=== PATIENT | male | born 1960 | race Caucasian/White ===

== ENCOUNTER 2017-05-02 17:05 | Emergency (ER) | payer MEDICARE, MEDICAID ==
--- NOTE | 2017-05-02 17:23 | EDM.PDOC ---
ED HPI GENERAL MEDICAL PROBLEM - General Chief Complaint: Lower Extremity Injury/Pain Stated Complaint: PT SPILL HOT COFFEE ON HIS LT LEG Time Seen by Provider: 05/02/17 17:19 - History of Present Illness INITIAL COMMENTS - FREE TEXT/NARRATIVE: HISTORY AND PHYSICAL: History of present illness: Patient 56-year-old white male presents with concern of burn to his left leg that occur when he spilled hot coffee on it several days prior he has had increased erythema and discomfort since he denies other concern is been no fever chills nausea vomiting Review of systems: As per history of present illness and below otherwise all systems reviewed and negative. Past medical history: As per history of present illness and as reviewed below otherwise noncontributory. Surgical history: As per history of present illness and as reviewed below otherwise noncontributory. Social history: No reported history of drug or alcohol abuse. Family history: As per history of present illness and as reviewed below otherwise noncontributory. Physical exam: HEENT: Atraumatic, normocephalic, pupils reactive, negative for conjunctival pallor or scleral icterus, mucous membranes moist, throat clear, neck supple, nontender, trachea midline. Lungs: Clear to auscultation, breath sounds equal bilaterally, chest nontender. Heart: S1S2, regular, negative for clicks, rubs, or JVD. Abdomen: Soft, nondistended, nontender. Negative for masses or hepatosplenomegaly. Negative for costovertebral tenderness. Pelvis: Stable nontender. Genitourinary: Deferred. Rectal: Deferred. Extremities: Patient has 3 areas approximately 2% total body surface burn to the medial aspect of his left proximal leg with surrounding erythema and warmth neurovascular exam CMS are unremarkable Neuro: Awake, alert, oriented. Cranial nerves II through XII unremarkable. Cerebellum unremarkable. Motor and sensory unremarkable throughout. Exam nonfocal. Diagnostics: None Therapeutics: None Impression: #1 burn left lower extremity less than 2% total body surface area without circumstantiality #2 cellulitis Definitive disposition and diagnosis as appropriate pending reevaluation and review of above. Review of Systems - Review of Systems Review Of Systems: ROS reveals no pertinent complaints other than HPI. ED EXAM, GENERAL - Physical Exam Exam: See Below (The dictation) Departure - Departure Time of Disposition: 17:22 Disposition: Home, Self-Care 01 Condition: Good Clinical Impression: Burn, Cellulitis - Discharge Information Referrals: PCP,None [Primary Care Provider] - Additional Instructions: The following information is given to patients seen in the emergency department who are being discharged to home. This information is to outline your options for follow-up care. We provide all patients seen in our emergency department with a follow-up referral. The need for follow-up, as well as the timing and circumstances, are variable depending upon the specifics of your emergency department visit. If you don't have a primary care physician on staff, we will provide you with a referral. We always advise you to contact your personal physician following an emergency department visit to inform them of the circumstance of the visit and for follow-up with them and/or the need for any referrals to a consulting specialist. The emergency department will also refer you to a specialist when appropriate. This referral assures that you have the opportunity for followup care with a specialist. All of these measure are taken in an effort to provide you with optimal care, which includes your followup. Under all circumstances we always encourage you to contact your private physician who remains a resource for coordinating your care. When calling for followup care, please make the office aware that this follow-up is from your recent emergency room visit. If for any reason you are refused follow-up, please contact the [facility] emergency department at and asked to speak to the emergency department charge nurse. Dr. mar as prescribed Motrin/Tylenol as directed follow-up for wound evaluation primary medical doctor and/or clinic call to schedule routine appointment return as needed as discussed
== END 2017-05-02 17:29 | disposition home or self-care (01) ==
LOC: MW.ED 17:05
DX: L03.116 Cellulitis of left lower limb (principal)
CPT/HCPCS: 99282; 99283

== ENCOUNTER 2019-08-30 13:50 | Emergency (ER) | payer MEDICARE, MEDICAID ==
[2019-08-30] MEDS ORDERED: Sodium Chloride 0.9% 10 ML Syringe FLUSH PRN (15:37)
[2019-08-30] MEDS ORDERED: Sodium Chloride 0.9% 2.5 ML Syringe FLUSH PRN (15:37)
--- NOTE | 2019-08-30 16:14 | EDM.PDOC ---
ED HPI GENERAL MEDICAL PROBLEM - General Chief Complaint: General Stated Complaint: ULCER Time Seen by Provider: 08/30/19 15:37 Source of Information: Reports: Patient - History of Present Illness INITIAL COMMENTS - FREE TEXT/NARRATIVE: History of present illness: 58-year-old male presenting with report of "ulcers", however when asked to clarify, he reports bleeding from the rectum as well as painful possible hemorrhoids around his rectum and some dark-colored stools. He does also report some upper abdominal/epigastric area pain and he has been taking Pepto-Bismol lately. The symptoms have been ongoing for a few weeks. No chest pain or difficulty breathing. Denies any past medical history. Review of systems: As per history of present illness and below otherwise all systems reviewed and negative. Past medical history: As per history of present illness and as reviewed below otherwise noncontributory. Surgical history: As per history of present illness and as reviewed below otherwise noncontributory. Social history: No reported history of drug or alcohol abuse. Tobacco Family history: As per history of present illness and as reviewed below otherwise noncontributory. Physical exam: GEN: no acute distress, well appearing HEENT: Atraumatic, normocephalic, mucous membranes moist, Neck: supple, nontender, trachea midline. Lungs: No respiratory distress. Heart: RRR Abdomen: Soft, nondistended, very mild epigastric tenderness. Rectal: Hemorrhoids, inflamed, tender during rectal examination, dark-colored stool that was guaiac negative, no anal fissure Back: nontender Extremities: Atraumatic. Neurovascularly intact. Neuro: Awake, alert, oriented. Neuro Exam nonfocal. Skin: warm, dry, no lesions Diagnostics: [] Therapeutics: [] MDM: Impression: [] Plan: [] Definitive disposition and diagnosis as appropriate pending reevaluation and review of above. - Related Data Allergies Allergy/AdvReac Type Severity Reaction Status Date / Time No Known Allergies Allergy Verified 08/30/19 14:07 Home Meds: Home Meds Docusate Sodium [Colace] 100 mg PO DAILY #30 capsule 08/30/19 [Rx] Omeprazole 20 mg PO DAILY #30 capsule. 08/30/19 [Rx] weston Monet [Gerard] 1 pad TOP ASDIRECTED #30 pad 08/30/19 [Rx] Past Medical History - Past Health History Medical/Surgical History: Denies Medical/Surgical History HEENT History: Reports: None Cardiovascular History: Reports: None Respiratory History: Reports: None Gastrointestinal History: Reports: None Genitourinary History: Reports: None Musculoskeletal History: Reports: None Neurological History: Reports: None Psychiatric History: Reports: None Endocrine/Metabolic History: Reports: None Hematologic History: Reports: None Immunologic History: Reports: None Oncologic (Cancer) History: Reports: None Dermatologic History: Reports: Cellulitis - Infectious Disease History Infectious Disease History: Reports: None - Past Surgical History Head Surgeries/Procedures: Reports: None Social & Family History - Family History Family Medical History: Noncontributory - Tobacco Use Smoking Status *Q: Current Every Day Smoker Years of Tobacco use: 40 Packs/Tins Daily: 1 - Caffeine Use Caffeine Use: Reports: None - Recreational Drug Use Recreational Drug Use: No ED ROS GENERAL - Review of Systems Review Of Systems: See Below (See HPI) ED EXAM, GENERAL - Physical Exam Exam: See Below (See HPI see HPI) EKG INTERPRETATION EKG Interpretation Comments: EKG performed at 4:29 PM, sinus rhythm, rate 76, no acute ischemia. No STEMI. Interpreted by me. Course - Vital Signs Text/Narrative:: Epigastric pain, anal area pain/hemorrhoids, dark stool - guaiac negative. H/H stable. INR not prolonged. No known PMHX Referred for Surgery f/u for endoscopy/colonoscopy. Start omeprazole. Tucks/colace and Sitz bath for hemorrhoid pain relief. Last Recorded V/S: Last Vital Signs Temp Pulse 82 08/30/19 17:13 Resp 18 08/30/19 17:13 BP 150/105 H 08/30/19 17:13 Pulse Ox 94 L 08/30/19 17:13 - Orders/Labs/Meds Orders: Active Orders 24 hr Category Date Time Status EKG 12 Lead [EKG Documentation Completion] [RC] STAT Care 08/30/19 16:23 Active Saline Lock Insert [OM.PC] Stat Oth 08/30/19 15:37 Ordered Labs: Laboratory Tests 08/30/19 08/30/19 08/30/19 Range/Units 15:58 15:58 15:58 WBC 9.68 (4.0-11.0) K/uL RBC 5.05 (4.50-5.90) M/uL Hgb 15.8 (13.0-17.0) g/dL Hct 47.4 (38.0-50.0) % MCV 93.9 (80.0-98.0) fL MCH 31.3 (27.0-32.0) pg MCHC 33.3 (31.0-37.0) g/dL RDW Std Deviation 48.2 (28.0-62.0) fl RDW Coeff of Jade 14 (11.0-15.0) % Plt Count 190 (150-400) K/uL MPV 9.90 (7.40-12.00) fL Neut % (Auto) 64.7 (48.0-80.0) % Lymph % (Auto) 27.1 (16.0-40.0) % [place] % (Auto) 6.3 (0.0-15.0) % Eos % (Auto) 1.5 (0.0-7.0) % Baso % (Auto) 0.4 (0.0-1.5) % Neut # (Auto) 6.3 H (1.4-5.7) K/uL Lymph # (Auto) 2.6 H (0.6-2.4) K/uL [place] # (Auto) 0.6 (0.0-0.8) K/uL Eos # (Auto) 0.2 (0.0-0.7) K/uL Baso # (Auto) 0.0 (0.0-0.1) K/uL Nucleated RBC % 0.0 /100WBC Nucleated RBCs # 0 K/uL INR 0.92 APTT 27.0 (18.6-31.3) SEC Sodium 140 (136-148) mmol/L Potassium 4.1 (3.5-5.1) mmol/L Chloride 103 (98-107) mmol/L Carbon Dioxide 29.6 (21.0-32.0) mmol/L BUN 19 H (7.0-18.0) mg/dL Creatinine 0.8 (0.8-1.3) mg/dL Est Cr Clr Drug Dosing 103.10 mL/min Estimated GFR (MDRD) > 60.0 ml/min Glucose 108 H (74-106) mg/dL Calcium 9.1 (8.5-10.1) mg/dL Total Bilirubin 0.3 (0.2-1.0) mg/dL AST 28 (15-37) IU/L ALT 33 (14-63) IU/L Alkaline Phosphatase 114 (46-116) U/L Total Protein 8.0 (6.4-8.2) g/dL Albumin 3.6 (3.4-5.0) g/dL Globulin 4.4 H (2.6-4.0) g/dL Albumin/Globulin Ratio 0.8 L (0.9-1.6) Blood Type Antibody Screen 08/30/19 Range/Units 16:12 WBC (4.0-11.0) K/uL RBC (4.50-5.90) M/uL Hgb (13.0-17.0) g/dL Hct (38.0-50.0) % MCV (80.0-98.0) fL MCH (27.0-32.0) pg MCHC (31.0-37.0) g/dL RDW Std Deviation (28.0-62.0) fl RDW Coeff of Jade (11.0-15.0) % Plt Count (150-400) K/uL MPV (7.40-12.00) fL Neut % (Auto) (48.0-80.0) % Lymph % (Auto) (16.0-40.0) % [place] % (Auto) (0.0-15.0) % Eos % (Auto) (0.0-7.0) % Baso % (Auto) (0.0-1.5) % Neut # (Auto) (1.4-5.7) K/uL Lymph # (Auto) (0.6-2.4) K/uL [place] # (Auto) (0.0-0.8) K/uL Eos # (Auto) (0.0-0.7) K/uL Baso # (Auto) (0.0-0.1) K/uL Nucleated RBC % /100WBC Nucleated RBCs # K/uL INR APTT (18.6-31.3) SEC Sodium (136-148) mmol/L Potassium (3.5-5.1) mmol/L Chloride (98-107) mmol/L Carbon Dioxide (21.0-32.0) mmol/L BUN (7.0-18.0) mg/dL Creatinine (0.8-1.3) mg/dL Est Cr Clr Drug Dosing mL/min Estimated GFR (MDRD) ml/min Glucose (74-106) mg/dL Calcium (8.5-10.1) mg/dL Total Bilirubin (0.2-1.0) mg/dL AST (15-37) IU/L ALT (14-63) IU/L Alkaline Phosphatase (46-116) U/L Total Protein (6.4-8.2) g/dL Albumin (3.4-5.0) g/dL Globulin (2.6-4.0) g/dL Albumin/Globulin Ratio (0.9-1.6) Blood Type O POSITIVE Antibody Screen NEGATIVE Meds: Medications Discontinued Medications Generic Name Dose Route Start Last Admin Trade Name Freq PRN Reason Stop Dose Admin Sodium Chloride 10 ml 08/30/19 15:37 Saline Flush FLUSH ASDIRECTED PRN Keep Vein Open Sodium Chloride 2.5 ml 08/30/19 15:37 Saline Flush FLUSH ASDIRECTED PRN Keep Vein Open - Re-Assessments/Exams Free Text/Narrative Re-Assessment/Exam: 08/30/19 16:43 Discussed all results and plan of care with patient. Answered all questions. Discussed need to take the omeprazole daily - he thinks the pharmacist may have given him this medication that he just started taking in the last 2 days. Discussed hemorrhoid care. NO signs of perirectal abscess/infection at this time and stable for outpatient treatment. Departure - Departure Time of Disposition: 16:59 Disposition: Home, Self-Care 01 Clinical Impression: Epigastric pain, Hemorrhoid - Discharge Information Prescriptions: Docusate Sodium [Colace] 100 mg PO DAILY #30 capsule Omeprazole 20 mg PO DAILY #30 capsule.dr weston Monet [[facility]] 1 pad TOP ASDIRECTED #30 pad Instructions: Hemorrhoids, [id number], Surgical Procedures for Hemorrhoids, Abdominal Pain, Adult, [id number], Nonsurgical Procedures for Hemorrhoids, Care After Referrals: Mukul Nazario DO [Primary Care Provider] - Idania Griffith MD [Physician] - 2 Days Forms: ED Department Discharge Additional Instructions: Please take omeprazole daily for the next 2 weeks. Please follow-up with the surgeon listed above for further evaluation of your hemorrhoids and epigastric pain, you may need upper and lower GI endoscopy. You may use Tucks medicated pads and please do sitz bath's for your hemorrhoids. You may also switch to water wipes instead of dry toilet paper to help soothe the area. Please follow-up with 1 of the primary care clinics listed below for ongoing daily primary care. The following information is given to patients seen in the emergency department who are being discharged to home. This information is to outline your options for follow-up care. We provide all patients seen in our emergency department with a follow-up referral. The need for follow-up, as well as the timing and circumstances, are variable depending upon the specifics of your emergency department visit. If you don't have a primary care physician on staff, we will provide you with a referral. We always advise you to contact your personal physician following an emergency department visit to inform them of the circumstance of the visit and for follow-up with them and/or the need for any referrals to a consulting specialist. The emergency department will also refer you to a specialist when appropriate. This referral assures that you have the opportunity for follow-up care with a specialist. All of these measure are taken in an effort to provide you with optimal care, which includes your follow-up. Under all circumstances we always encourage you to contact your private physician who remains a resource for coordinating your care. When calling for follow-up care, please make the office aware that this follow-up is from your recent emergency room visit. If for any reason you are refused follow-up, please contact the [facility] Emergency Department at and asked to speak to the emergency department charge nurse. [facility] - Primary Care [address] [place] [id number] [facility] [address] [place] [address] Sepsis Event Note (ED) - Evaluation Sepsis Screening Result: No Definite Risk - Focused Exam Vital Signs: Vital Signs Pulse Resp BP Pulse Ox 08/30/19 17:13 82 18 150/105 H 94 L 08/30/19 14:08 84 20 139/71 94 L - My Orders Last 24 Hours: My Active Orders 08/30/19 15:37 Saline Lock Insert [OM.PC] Stat 08/30/19 16:23 EKG 12 Lead [EKG Documentation Completion] [RC] STAT - Assessment/Plan Last 24 Hours: My Active Orders 08/30/19 15:37 Saline Lock Insert [OM.PC] Stat 08/30/19 16:23 EKG 12 Lead [EKG Documentation Completion] [RC] STAT
[2019-08-30 16:29] LABS: BLOOD UREA NITROGEN,BUN 19 mg/dL (7.0-18.0); CARBON DIOXIDE,CO2 29.6 mmol/L (21.0-32.0); CHLORIDE,CL 103 mmol/L (98-107); GLUCOSE RANDOM 108 mg/dL (74-106); POTASSIUM,K 4.1 mmol/L (3.5-5.1); SODIUM,NA 140 mmol/L (136-148)
== END 2019-08-30 17:23 | disposition home or self-care (01) ==
LOC: MW.ED 13:50
DX: K64.9 Unspecified hemorrhoids (principal); R10.13 Epigastric pain; F17.210 Nicotine dependence, cigarettes, uncomplicated; Z79.899 Other long term (current) drug therapy
CPT/HCPCS: 36415; 80053; 85025; 85610; 85730; 86850; 86900; 86901; 93005; 99284-25

== ENCOUNTER 2019-09-06 20:06 | Emergency (ER) | payer MEDICARE, MEDICAID ==
[2019-09-07] MEDS ORDERED: Sodium Chloride 0.9% 2.5 ML Syringe FLUSH PRN (00:07)
[2019-09-07] MEDS ORDERED: Acetaminophen 325 MG/10.15 ML ML PO ONE (00:07)
[2019-09-07] MEDS ORDERED: Piperacillin/Tazobactam 4.5 GM in Sodium Chloride 0.9% 100 ML IV ONE (00:07)
[2019-09-07] MEDS ORDERED: Acetaminophen 500 MG Tab PO ONE (00:32)
[2019-09-07] MEDS: Sodium Chloride 0.9% 10 ML Syringe FLUSH PRN ×2 (00:41→00:43)
[2019-09-07 00:57] LABS: BLOOD UREA NITROGEN,BUN 19 mg/dL (7.0-18.0); CARBON DIOXIDE,CO2 28.7 mmol/L (21.0-32.0); CHLORIDE,CL 101 mmol/L (98-107); GLUCOSE RANDOM 112 mg/dL (74-106); POTASSIUM,K 3.9 mmol/L (3.5-5.1); SODIUM,NA 139 mmol/L (136-148)
[2019-09-07] MEDS ORDERED: Diphtheria,Pertussis(Acell),Tetanus Vaccine 0.5 ML Syringe IM ONE (01:01)
--- NOTE | 2019-09-07 01:19 | CR ---
INDICATION: Pain after stepping on nail TECHNIQUE: Three views right foot COMPARISON: 02/24/2019 FINDINGS: Bones: Alignment is normal. No fractures or bone lesions. Joint spaces: Unremarkable. Soft tissues: Plantar and dorsal calcaneal spurs. Calcification of the Achilles tendon. IMPRESSION: No radiopaque foreign bodies. No fractures. Dictated by Herrera Rivero MD @ Sep 07 2019 1:18AM Signed by Dr. Herrera Rivero @ Sep 07 2019 1:18AM
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
[2019-09-07] MEDS ORDERED: Vancomycin 1.75 GM in Sodium Chloride 0.9% 500 ML IV SCH (02:00)
== END 2019-09-07 03:04 | disposition left against medical advice (07) ==
LOC: MW.ED 20:06
DX: L03.115 Cellulitis of right lower limb (principal); K21.9 Gastro-esophageal reflux disease without esophagitis; F17.210 Nicotine dependence, cigarettes, uncomplicated; Z20.828 Contact with and (suspected) exposure to other viral communicable diseases; Z79.899 Other long term (current) drug therapy; Z23 Encounter for immunization; W45.0XXA Nail entering through skin, initial encounter
CPT/HCPCS: 36415; 73630; 80053; 83605; 84145; 85025; 85652; 87040; 90471; 90715; 96365; 96366; 99283; A9270; J2543; J7050; U0002

== ENCOUNTER 2020-01-31 05:24 | Emergency (ER) | payer MEDICARE, MEDICAID ==
[2020-01-31] MEDS ORDERED: Sodium Chloride 0.9% 10 ML Syringe FLUSH PRN (05:43)
[2020-01-31] MEDS ORDERED: Sodium Chloride 0.9% 2.5 ML Syringe FLUSH PRN (05:43)
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
[2020-01-31] MEDS ORDERED: Lidocaine 1% with EPINEPHrine 1:100,000 10 ML MDV INJECT ONE (06:14)
[2020-01-31] MEDS ORDERED: Lidocaine 1% with EPINEPHrine 1:100,000 20 ML MDV INJECT ONE (06:17)
[2020-01-31] MEDS ORDERED: Piperacillin/Tazobactam 4.5 GM in Sodium Chloride 0.9% 100 ML IV ONE (06:34)
[2020-01-31 06:38] LABS: BLOOD UREA NITROGEN,BUN 19 mg/dL (7.0-18.0); CARBON DIOXIDE,CO2 29.2 mmol/L (21.0-32.0); CHLORIDE,CL 102 mmol/L (98-107); GLUCOSE RANDOM 112 mg/dL (74-106); POTASSIUM,K 4.2 mmol/L (3.5-5.1); SODIUM,NA 138 mmol/L (136-148)
--- NOTE | 2020-01-31 06:46 | CR ---
Indication: Osteomyelitis. Technique: Right foot 3 views Comparison: September 07, 2019 Findings: Bones: Alignment is normal. No fractures or bone lesions. No sign of osteomyelitis. There is spurring at the insertion of the Achilles tendon. Joint spaces: Unremarkable. Soft tissues: Mild nonspecific soft tissue swelling in the distal aspect of the midfoot best visualized on the lateral image. Dictated by Avtar Lewis MD @ Jan 31 2020 6:43AM Signed by Dr. Avtar Lewis @ Jan 31 2020 6:45AM
== END 2020-01-31 07:41 | disposition home or self-care (01) ==
LOC: MW.ED 05:24
DX: L03.115 Cellulitis of right lower limb (principal); L02.611 Cutaneous abscess of right foot
CPT/HCPCS: 10060; 36415; 73630; 80053; 83605; 85025; 85652; 86140; 87040; 87070; 96365; 99283; J2543; J7050

== ENCOUNTER 2020-08-20 10:02 | Emergency (ER) | payer MEDICARE, MEDICAID ==
[2020-08-20] MEDS ORDERED: Albuterol/Ipratropium 3.0-0.5 MG/3 ML Neb Soln NEB ONE ×2 (10:06→10:22)
[2020-08-20] MEDS ORDERED: Sodium Chloride 0.9% 10 ML Syringe FLUSH PRN (10:06)
[2020-08-20] MEDS ORDERED: Sodium Chloride 0.9% 2.5 ML Syringe FLUSH PRN (10:06)
[2020-08-20] MEDS ORDERED: Furosemide 40 MG/4 ML VIAL IVPUSH ONE (10:08)
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
[2020-08-20] MEDS ORDERED: Albuterol/Ipratropium 3.0-0.5 MG/3 ML Neb Soln ONE (10:21)
[2020-08-20] MEDS ORDERED: methylPREDNISolone Sodium Succinate 125 MG/2 ML SDV IVPUSH ONE (11:10)
[2020-08-20] MEDS ORDERED: Albuterol 0.5% 5 MG/ML Neb Soln 20 ML Bottle NEB ONE (11:11)
[2020-08-20 11:13] LABS: BLOOD UREA NITROGEN,BUN 8 mg/dL (7.0-18.0); CARBON DIOXIDE,CO2 32.5 mmol/L (21.0-32.0); CHLORIDE,CL 99 mmol/L (98-107); GLUCOSE RANDOM 118 mg/dL (74-106); POTASSIUM,K 4.1 mmol/L (3.5-5.1); SODIUM,NA 140 mmol/L (136-148)
--- NOTE | 2020-08-20 11:14 | CR ---
Indication: Dyspnea Comparison: Two view chest April 22, 2011 Technique: Single AP view chest Findings: There is hyperinflation and chronic interstitial change. There is questionable right basilar pleural effusion with adjacent compressive atelectasis versus infiltrates. The left hemithorax is clear. There is no pneumothorax. Cardiac silhouette is [id number] prominent, a pericardial effusion cannot be excluded. The bony thorax is grossly intact. Impression: Questionable right basilar pleural effusion with adjacent compressive atelectasis versus infiltrates. Somewhat prominent cardiac silhouette from comparison exam. A pericardial effusion cannot be entirely excluded. Dictated by Albaro Allen MD @ 08/20/2020 11:12:[address] Albaro Allen @ Aug 20 2020 11:12AM
[2020-08-20] MEDS ORDERED: Iopamidol 755 MG/ML 500 ML Multipack Bottle IVPUSH STA (12:34)
--- NOTE | 2020-08-20 13:51 | CT ---
INDICATION: Dyspnea with right atrial enlargement on chest x-ray TECHNIQUE: CT chest pulmonary angiogram acquired with IV contrast. 100 cc Isovue 370 COMPARISON: None FINDINGS: Cardiovascular structures: Normal vascular enhancement of the pulmonary arteries, no sign of pulmonary embolism. Heart size is normal. Small pericardial effusion. No sign of aneurysm or dissection in the thoracic aorta. Mediastinum and julian: Subcentimeter mediastinal adenopathy. Lungs: Clear. Pleura and pericardium: No effusions. Chest wall and axilla: No mass or adenopathy. Bones: No significant findings. Upper abdomen: Degenerative changes thoracic spine. IMPRESSION: No evidence for pulmonary embolus or pneumonia. Small pericardial effusion. Please note that all CT scans at this facility use dose modulation, iterative reconstruction, and/or weight-based dosing when appropriate to reduce radiation dose to as low as reasonably achievable. Dictated by Herrera Rivero MD @ 08/20/2020 1:50:[address] Herrera Rivero @ Aug 20 2020 1:50PM
== END 2020-08-20 14:13 | disposition home or self-care (01) ==
LOC: MW.ED 10:02
DX: J44.1 Chronic obstructive pulmonary disease with (acute) exacerbation (principal); J90 Pleural effusion, not elsewhere classified
CPT/HCPCS: 36415; 71045; 71275; 80053; 81003; 83880; 84484; 85025; 85610; 93005; 94640; 96374; 96375; 99285; J1940; J2930; Q9967; J7620-GY

== ENCOUNTER 2021-04-02 08:43 | Emergency (ER) | payer MEDICARE, MEDICAID ==
[2021-04-02] MEDS ORDERED: Ibuprofen 600 MG Tab PO ONE (09:11)
[2021-04-02] MEDS ORDERED: traMADol 50 MG Tab PO ONE (09:11)
[2021-04-02] MEDS ORDERED: Ibuprofen 600 MG Tab ONE (09:22)
== END 2021-04-02 10:18 | disposition home or self-care (01) ==
LOC: MW.ED 08:43
DX: S43.401A Unspecified sprain of right shoulder joint, initial encounter (principal); S53.401A Unspecified sprain of right elbow, initial encounter; J44.9 Chronic obstructive pulmonary disease, unspecified; K21.9 Gastro-esophageal reflux disease without esophagitis; E66.9 Obesity, unspecified; Z72.0 Tobacco use; Z68.28 Body mass index [BMI] 28.0-28.9, adult; Z79.82 Long term (current) use of aspirin; W00.0XXA Fall on same level due to ice and snow, initial encounter
CPT/HCPCS: 73030; 73080; 99283; A9270

== ENCOUNTER 2021-06-20 12:53 | Emergency (ER) | payer MEDICARE, MEDICAID ==
[2021-06-20] MEDS ORDERED: predniSONE 10 MG Tab PO ONE (13:12)
[2021-06-20] MEDS ORDERED: Ketorolac 60 MG/2 ML SDV IM ONE (13:13)
== END 2021-06-20 13:57 | disposition home or self-care (01) ==
LOC: MW.ED 12:53
DX: M10.9 Gout, unspecified (principal); J44.9 Chronic obstructive pulmonary disease, unspecified; K21.9 Gastro-esophageal reflux disease without esophagitis; E66.9 Obesity, unspecified; Z68.38 Body mass index [BMI] 38.0-38.9, adult; Z20.822 Contact with and (suspected) exposure to COVID-19; Z79.82 Long term (current) use of aspirin
CPT/HCPCS: 73660; 96372; 99283; A9270; J1885

== ENCOUNTER 2022-07-29 06:23 | Emergency (ER) | payer MEDICARE, MEDICAID | END 2022-07-29 08:58 | disposition home or self-care (01) | LOC: MW.ED 06:23 | DX: B35.1 Tinea unguium (principal); B35.3 Tinea pedis; J44.9 Chronic obstructive pulmonary disease, unspecified; M19.90 Unspecified osteoarthritis, unspecified site; E66.9 Obesity, unspecified; Z68.38 Body mass index [BMI] 38.0-38.9, adult; Z79.82 Long term (current) use of aspirin; Z79.899 Other long term (current) drug therapy | CPT/HCPCS: 736302650; 73630-50; 99283 ==

== ENCOUNTER 2022-10-25 10:12 | Emergency (ER) | payer MEDICARE, MEDICAID ==
[2022-10-25] MEDS ORDERED: Cyclobenzaprine 10 MG Tab PO ONE (10:32)
[2022-10-25] MEDS ORDERED: Lidocaine 4% 1 each Patch TOP STA (10:32)
== END 2022-10-25 10:54 | disposition home or self-care (01) ==
LOC: MW.ED 10:12
DX: M54.50 Low back pain, unspecified (principal); M25.551 Pain in right hip; M25.552 Pain in left hip; F17.210 Nicotine dependence, cigarettes, uncomplicated; Z79.82 Long term (current) use of aspirin; Z79.899 Other long term (current) drug therapy
CPT/HCPCS: 93005; 99284; A9270; 99283

== ENCOUNTER 2024-11-04 12:37 | Inpatient (IN) | payer MEDICARE, MEDICAID ==
[2024-11-04 13:31] LABS: APPEARANCE,URINE CLEAR; GLUCOSE,URINE NEGATIVE (NEGATIVE); OCCULT BLOOD,URINE NEGATIVE (NEGATIVE)
[2024-11-04] MEDS: methylPREDNISolone Sodium Succinate 125 MG/2 ML SDV IVPUSH ONE (13:34)
[2024-11-04 13:38] LABS: BASOPHILS ABSOLUTE AUTO 0.04 K/uL (0.00-0.20); BASOPHILS PERCENT AUTO 0.4 % (0.0-1.0); EOSINOPHILS ABSOLUTE AUTO 0.13 K/uL (0.00-0.45); EOSINOPHILS PERCENT AUTO 1.2 % (0.0-6.0); IMMATURE GRAN ABSOLUTE AUTO 0.06 K/uL (0.00-0.05); IMMATURE GRAN PERCENT AUTO 0.6 % (0.0-0.4); LYMPHOCYTES ABSOLUTE AUTO 1.69 K/uL (1.00-4.80); LYMPHOCYTES PERCENT AUTO 15.6 % (24.0-44.0); MEAN PLATELET VOLUME 9.8 fL (9.4-12.4); MONOCYTES ABSOLUTE AUTO 0.67 K/uL (0.00-0.80); MONOCYTES PERCENT AUTO 6.2 % (0.0-8.0); NEUTROPHILS ABSOLUTE AUTO 8.21 K/uL (1.80-7.70); NEUTROPHILS PERCENT AUTO 76.0 % (41.0-71.0); NRBC ABSOLUTE 0.00 K/uL (0.00-0.02); NRBC PERCENT 0.0 /100WBC (0.0-0.2); PLATELET COUNT,PLT 170 K/uL (150-400); RED BLOOD CELL COUNT 5.23 M/uL (4.52-5.90); WHITE BLOOD CELL COUNT,WBC 10.80 K/uL (3.9-11.3)
[2024-11-04 13:40] LABS: AMPHETAMINES SCREEN, URINE NEGATIVE (CUTOFF=500); BUPRENORPHINE SCREEN,URINE NEGATIVE (CUTOFF=10); METHADONE SCREEN, URINE NEGATIVE (CUTOFF=200); METHAMPHETAMINES SCREEN, URINE NEGATIVE (CUTOFF=500); OXYCODONE SCREEN,URINE NEGATIVE (CUT0FF=100); PCP SCREEN,URINE NEGATIVE (CUTOFF=25); THC SCREEN,URINE 20 NG/ML PRESUMPTIVE POSITIVE (CUTOFF=50)
[2024-11-04 14:05] LABS: A/G RATIO 0.8 (0.9-1.6); ALANINE AMINOTRANSFERASE,ALT 35 IU/L (14-63); ASPARTATE AMNIOTRANSFERASE,AST 35 IU/L (15-37); BILIRUBIN TOTAL 0.6 mg/dL (0.2-1.0); BLOOD UREA NITROGEN,BUN 20 mg/dL (7.0-18.0); CARBON DIOXIDE,CO2 34.3 mmol/L (21.0-32.0); CHLORIDE,CL 100 mmol/L (98-107); CREATININE 0.9 mg/dL (0.8-1.3); EST CRCL DRUG DOSING (CG) 82.33 mL/min; ETHANOL BLOOD MEDICAL <3 mg/dL; GLUCOSE RANDOM 94 mg/dL (74-106); POTASSIUM,K 4.6 mmol/L (3.5-5.1); PROTEIN TOTAL,TP 7.7 g/dL (6.4-8.2); SODIUM,NA 141 mmol/L (136-148)
[2024-11-04 14:07] LABS: ESTIMATED GFR 97 mL/min (>60)
[2024-11-04 14:08] LABS: LACTIC ACID 0.9 mmol/L (0.4-2.0)
[2024-11-04 14:16] LABS: PCO2 VENOUS 73.0 mmHG (41-51); PH,VENOUS 7.35 (7.32-7.43); PO2 VENOUS 26.0 mmHG (35-45)
[2024-11-04 14:17] LABS: BASE EXCESS VENOUS 10.8 (-2.0-3.0); BICARBONATE,VENOUS 40.0 mEq/L (22-29)
[2024-11-04] MEDS: Iopamidol 755 Mg/ML 100 ML Bottle IVPUSH ONE (14:31)
[2024-11-04] MEDS ORDERED: Sodium Chloride 0.9% 2.5 ML Syringe FLUSH PRN (17:17)
[2024-11-04] MEDS ORDERED: Ondansetron 4 MG Tab.DIS PO PRN (17:17)
[2024-11-04] MEDS ORDERED: Sodium Chloride 0.9% 10 ML Syringe FLUSH PRN (17:17)
[2024-11-04] MEDS: Heparin Sodium 5,000 Units/ML Vial SUBCUT SCH (20:06)
[2024-11-04] MEDS: methylPREDNISolone Sodium Succinate 125 MG/2 ML SDV IV SCH (22:27)
[2024-11-05] MEDS: Benzocaine/Cetylpyridinium/Menthol Lozenge MUCMEM PRN (00:51)
[2024-11-05] MEDS: Heparin Sodium 5,000 Units/ML Vial SUBCUT SCH (04:33)
[2024-11-05 05:53] LABS: BASOPHILS ABSOLUTE AUTO 0.01 K/uL (0.00-0.20); BASOPHILS PERCENT AUTO 0.1 % (0.0-1.0); EOSINOPHILS ABSOLUTE AUTO 0.00 K/uL (0.00-0.45); EOSINOPHILS PERCENT AUTO 0.0 % (0.0-6.0); IMMATURE GRAN ABSOLUTE AUTO 0.05 K/uL (0.00-0.05); IMMATURE GRAN PERCENT AUTO 0.7 % (0.0-0.4); LYMPHOCYTES ABSOLUTE AUTO 0.71 K/uL (1.00-4.80); LYMPHOCYTES PERCENT AUTO 9.8 % (24.0-44.0); MEAN PLATELET VOLUME 10.4 fL (9.4-12.4); MONOCYTES ABSOLUTE AUTO 0.13 K/uL (0.00-0.80); MONOCYTES PERCENT AUTO 1.8 % (0.0-8.0); NEUTROPHILS ABSOLUTE AUTO 6.37 K/uL (1.80-7.70); NEUTROPHILS PERCENT AUTO 87.6 % (41.0-71.0); NRBC ABSOLUTE 0.00 K/uL (0.00-0.02); NRBC PERCENT 0.0 /100WBC (0.0-0.2); PLATELET COUNT,PLT 178 K/uL (150-400); RED BLOOD CELL COUNT 5.11 M/uL (4.52-5.90); WHITE BLOOD CELL COUNT,WBC 7.27 K/uL (3.9-11.3)
[2024-11-05 06:33] LABS: A/G RATIO 0.7 (0.9-1.6); ALANINE AMINOTRANSFERASE,ALT 35.0 IU/L (14-63); ASPARTATE AMNIOTRANSFERASE,AST 30.0 IU/L (15-37); BILIRUBIN TOTAL 0.4 mg/dL (0.2-1.0); BLOOD UREA NITROGEN,BUN 19.0 mg/dL (7.0-18.0); CARBON DIOXIDE,CO2 36.3 mmol/L (21.0-32.0); CHLORIDE,CL 101.0 mmol/L (98-107); CREATININE 0.9 mg/dL (0.8-1.3); EST CRCL DRUG DOSING (CG) 82.33 mL/min; GLUCOSE RANDOM 154.0 mg/dL (74-106); POTASSIUM,K 4.2 mmol/L (3.5-5.1); PROTEIN TOTAL,TP 7.6 g/dL (6.4-8.2); SODIUM,NA 142.0 mmol/L (136-148)
[2024-11-05 06:51] LABS: ESTIMATED GFR 97.0 mL/min (>60)
[2024-11-05 15:02] LABS: BORDETELLA PARAPERT IS1001 Not Detected (Not Detected)
[2024-11-06 05:59] LABS: BASOPHILS ABSOLUTE AUTO 0.01 K/uL (0.00-0.20); BASOPHILS PERCENT AUTO 0.1 % (0.0-1.0); EOSINOPHILS ABSOLUTE AUTO 0.00 K/uL (0.00-0.45); EOSINOPHILS PERCENT AUTO 0.0 % (0.0-6.0); IMMATURE GRAN ABSOLUTE AUTO 0.09 K/uL (0.00-0.05); IMMATURE GRAN PERCENT AUTO 0.8 % (0.0-0.4); LYMPHOCYTES ABSOLUTE AUTO 0.71 K/uL (1.00-4.80); LYMPHOCYTES PERCENT AUTO 5.9 % (24.0-44.0); MEAN PLATELET VOLUME 10.6 fL (9.4-12.4); MONOCYTES ABSOLUTE AUTO 0.57 K/uL (0.00-0.80); MONOCYTES PERCENT AUTO 4.8 % (0.0-8.0); NEUTROPHILS ABSOLUTE AUTO 10.61 K/uL (1.80-7.70); NEUTROPHILS PERCENT AUTO 88.4 % (41.0-71.0); NRBC ABSOLUTE 0.02 K/uL (0.00-0.02); NRBC PERCENT 0.2 /100WBC (0.0-0.2); PLATELET COUNT,PLT 178 K/uL (150-400); RED BLOOD CELL COUNT 5.02 M/uL (4.52-5.90); WHITE BLOOD CELL COUNT,WBC 11.99 K/uL (3.9-11.3)
[2024-11-06 06:23] LABS: BLOOD UREA NITROGEN,BUN 22.0 mg/dL (7.0-18.0); CARBON DIOXIDE,CO2 34.9 mmol/L (21.0-32.0); CHLORIDE,CL 100.0 mmol/L (98-107); CREATININE 0.8 mg/dL (0.8-1.3); EST CRCL DRUG DOSING (CG) 92.63 mL/min; GLUCOSE RANDOM 158.0 mg/dL (74-106); POTASSIUM,K 4.6 mmol/L (3.5-5.1); SODIUM,NA 141.0 mmol/L (136-148)
[2024-11-06 06:32] LABS: ESTIMATED GFR 100.0 mL/min (>60)
== END 2024-11-06 11:40 | disposition home or self-care (01) | DRG 189 ==
LOC: MW.ED 12:37 → MW.MS 17:05
PROVIDERS: ADMIT Internal Medicine; ATTEND Internal Medicine
DX: J96.21 Acute and chronic respiratory failure with hypoxia (principal); J44.1 Chronic obstructive pulmonary disease with (acute) exacerbation; Z68.41 Body mass index [BMI] 40.0-44.9, adult; J96.22 Acute and chronic respiratory failure with hypercapnia; R04.0 Epistaxis; H54.7 Unspecified visual loss; M19.90 Unspecified osteoarthritis, unspecified site; M10.9 Gout, unspecified; F17.210 Nicotine dependence, cigarettes, uncomplicated; E66.09 Other obesity due to excess calories; E66.811 Obesity, class 1; Z79.51 Long term (current) use of inhaled steroids; Z79.82 Long term (current) use of aspirin; Z79.52 Long term (current) use of systemic steroids; Z79.899 Other long term (current) drug therapy
CPT/HCPCS: 36415; 71045; 71275; 80053; 80305; 80307; 81003; 82803; 83605; 83690; 83735; 85025; 87040 ×2; 87426; A9270; J2919; J7030; Q9967; 80048; 87486; 87581; 87633; 99284; J0456; J0692; J1644; J7050